=== PATIENT | male | born 2000 | race Caucasian/White ===

== ENCOUNTER 2021-01-01 22:16 | Emergency (ER) | payer MEDICAID ==
[~2021-01-01] VITALS: Ht 165.1 cm; Wt 50.0 kg
[2021-01-01] MEDS ORDERED: SODIUM CHLORIDE 0.9% 1,000 ML IV ONE (22:45)
[2021-01-01 23:30] LABS: CHLORIDE 101 mEq/L (98-107)
[2021-01-02 00:03] LABS: BASOPHILS % 0.4 % (0.0-2.0); EOSINOPHILS % 2.2 % (0.0-5.0); HEMATOCRIT. 33.8 % (42.0-52.0); HEMOGLOBIN. 12.2 g/dL (14.0-18.0); LYMPHOCYTES % 14.4 % (20.0-50.0); MEAN CORPUSCULAR HEMOGLOBIN 33.5 pg (28.0-32.0); MEAN CORPUSCULAR VOLUME 92.7 fL (80.0-94.0); MEAN PLATELET VOLUME 9.1 fl (7.4-10.4); PLATELET 195 x1000/uL (130-400); RED BLOOD CELL COUNT 3.64 mill/uL (4.7-6.1); RED CELL DISTRIBUTION WIDTH 12.8 % (11.6-14.6)
[2021-01-02] MEDS ORDERED: AMOX-494 MT (00:23)
[2021-01-02] MEDS ORDERED: CEFTRIAXONE 1 G PREMIX 50 ML IV ONE (00:30)
[2021-01-02 01:48] VITALS: BP 110/54
== END 2021-01-02 01:53 | disposition home or self-care (01) ==
LOC: ER 22:16
DX: J18.9 Pneumonia, unspecified organism (principal); F84.0 Autistic disorder
CPT/HCPCS: 36415; 71045; 80053; 85025; 87040; 96361; 96365; 99284; J0696; J7030

== ENCOUNTER 2023-02-21 16:19 | Emergency (ER) | payer MEDICAID, OTHER ==
[~2023-02-21] VITALS: Ht 157.5 cm; Wt 50.0 kg
[~2023-02-21 16:19] MED LIST: AMOX-494 MT
[2023-02-21] MEDS ORDERED: SODIUM CHLORIDE 0.9% 1,000 ML IV ONE (17:30)
[2023-02-21 17:54] LABS: BASOPHILS % 0.4 % (0.0-2.0); EOSINOPHILS % 1.1 % (0.0-5.0); HEMATOCRIT. 39.3 % (42.0-52.0); HEMOGLOBIN. 13.7 g/dL (14.0-18.0); LYMPHOCYTES % 12.7 % (20.0-50.0); MEAN CORPUSCULAR HEMOGLOBIN 32.9 pg (28.0-32.0); MEAN CORPUSCULAR VOLUME 94.1 fL (80.0-94.0); MEAN PLATELET VOLUME 8.7 fl (7.4-10.4); MONOCYTES % 6.3 % (2.0-8.0); NEUTROPHILS % 79.5 % (40.0-76.0); PLATELET 199 x1000/uL (130-400); RED BLOOD CELL COUNT 4.17 mill/uL (4.7-6.1); RED CELL DISTRIBUTION WIDTH 13.4 % (11.6-14.6)
[2023-02-21 18:00] LABS: CHLORIDE 110 mEq/L (98-107)
[2023-02-21 18:09] LABS: CARBAMAZEPINE 3.9 ug/mL (4-12)
[2023-02-21] MEDS ORDERED: CARBAMAZEPINE 100MG TABLET CHEW PO ONE (18:45)
[2023-02-21 19:20] VITALS: BP 118/71
[2023-02-21] MEDS ORDERED: CARB200T MT (19:28)
== END 2023-02-21 19:45 | disposition home or self-care (01) ==
LOC: ER 16:19
DX: R56.9 Unspecified convulsions (principal); Z98.890 Other specified postprocedural states
CPT/HCPCS: 36415; 80053; 80156; 85025; 96360; 99283; J7030; Z7610

== ENCOUNTER 2023-12-01 17:31 | Emergency (ER) | payer OTHER ==
[~2023-12-01] VITALS: Ht 172.7 cm; Wt 70.0 kg
[~2023-12-01 17:31] MED LIST changes: +CARB200T MT
[2023-12-01 17:40] VITALS: BP 148/80; PULSE 80; RESP 16; TEMP 98.5; O2SAT 99
[2023-12-01] MEDS: CARBAMAZEPINE 100MG TABLET CHEW PO ONE (19:09)
[2023-12-01 19:14] LABS: BASOPHILS % 0.3 % (0.0-2.0); EOSINOPHILS % 0.7 % (0.0-5.0); HEMATOCRIT. 39.9 % (42.0-52.0); LYMPHOCYTES % 9.3 % (20.0-50.0); MEAN CORPUSCULAR HGB CONC 35.2 g/dL (31.0-37.0); MEAN CORPUSCULAR VOLUME 93.9 fL (80.0-94.0); MEAN PLATELET VOLUME 8.5 fl (7.4-10.4); MONOCYTES % 6.5 % (2.0-8.0); NEUTROPHILS % 83.2 % (40.0-76.0); PLATELET 226 x1000/uL (130-400); RED BLOOD CELL COUNT 4.25 mill/uL (4.7-6.1); RED CELL DISTRIBUTION WIDTH 13.5 % (11.6-14.6); WHITE BLOOD COUNT 14.6 x1000/uL (4.5-11.0)
[2023-12-01 19:30] LABS: ALANINE AMINOTRANSFERASE 32 IU/L (10-49); ALBUMIN 5.3 g/dL (3.2-4.8); ASPARTATE AMINOTRANSFERASE 37 IU/L (<34); BILIRUBIN TOTAL 0.2 mg/dL (0.1-1.0); CALCIUM 9.5 mg/dL (8.7-10.4); CARBAMAZEPINE 5.1 ug/mL (4-12); CARBON DIOXIDE 23 mEq/L (21-32); CHLORIDE 105 mEq/L (98-107); CREATININE 0.7 mg/dL (0.6-1.3); GLUCOSE 101 mg/dL (70-105); POTASSIUM 4.6 mEq/L (3.5-5.1); PROTEIN TOTAL 8.9 g/dL (6.0-8.3); SODIUM 135 mEq/L (136-145); UREA NITROGEN BLOOD 16 mg/dL (9-23)
== END 2023-12-01 21:06 | disposition home or self-care (01) ==
LOC: ER 17:31
DX: R56.9 Unspecified convulsions (principal); F84.0 Autistic disorder
CPT/HCPCS: 80053; 80156; 85025; 36415; 93005; 99284; Z7610 ×2